=== PATIENT | female | born 1995 | race Two or more races ===

== ENCOUNTER 2018-01-19 17:59 | Inpatient (IN) | payer OTHER ==
[2018-01-19] MEDS: NS 1,000 ML IV (18:13)
[2018-01-19 18:45] LABS: VENOUS BASE EXCESS -3.5 (-2.0-2.0); VENOUS HCO3 22.2 MEQ/L (23.0-27.0); VENOUS PARTIAL PRESSURE O2 41.3 mmHg (30.0-50.0); VENOUS STANDARD HCO3 21.1 MEQ/L; VENOUS TOTAL CO2 23.4 MEQ/L (24.0-28.0)
[2018-01-19 18:54] LABS: BASO # 0.1 10^3/uL (0.0-0.2); EOS % 0.2 % (0.0-3.0); HEMATOCRIT 35.9 % (36.0-47.0); HEMOGLOBIN 11.8 g/dl (12.0-15.5); IMMATURE GRANULOCYTE % 0.2 % (0-3.0); LYMPH # 3.3 10^3/uL (1.5-6.5); LYMPH % 53.5 % (24.0-44.0); MEAN CORPUSCULAR HEMOGLOBIN 26.9 pg (27.0-33.0); MEAN CORPUSCULAR HGB CONC 32.9 g/dl (32.0-36.5); MEAN CORPUSCULAR VOLUME 81.8 fl (80.0-96.0); MONO # 0.5 10^3/uL (0.0-0.8); NEUTROPHILS # 2.3 10^3/uL (1.8-7.7); NEUTROPHILS % 37.1 % (36.0-66.0); PLATELET COUNT, AUTOMATED 399 10^3/uL (150-450); RED BLOOD COUNT 4.39 10^6/uL (4.00-5.40); RED CELL DISTRIBUTION WIDTH 13.1 % (11.5-14.5); WHITE BLOOD COUNT 6.1 10^3/uL (4.0-10.0)
[2018-01-19 19:08] LABS: CONTROL LINE HCG INT CTR LINE PRESENT; HCG, SERUM QUALITATIVE NEGATIVE (NEGATIVE)
[2018-01-19 19:13] LABS: AMPHETAMINES LEVEL URINE NEGATIVE (NEGATIVE); BARBITURATES URINE NEGATIVE (NEGATIVE); BENZODIAZEPINES URINE NEGATIVE (NEGATIVE); CANNABINOIDS URINE NEGATIVE (NEGATIVE); COCAINE METABOLITE URINE NEGATIVE (NEGATIVE); METHADONE URINE NEGATIVE (NEGATIVE); OPIATES URINE NEGATIVE (NEGATIVE); PHENCYCLIDINE URINE NEGATIVE (NEGATIVE)
[2018-01-19 19:28] LABS: ALBUMIN 3.7 GM/DL (3.2-5.2); ALBUMIN/GLOBULIN RATIO 0.84 (1.00-1.93); ALKALINE PHOSPHATASE 69 U/L (45-117); ALT/SGPT 22 U/L (12-78); ANION GAP 11 MEQ/L (8-16); AST/SGOT 16 U/L (7-37); BILIRUBIN,DIRECT 0.2 MG/DL (0.0-0.2); BILIRUBIN,TOTAL 0.6 MG/DL (0.2-1.0); BLOOD UREA NITROGEN 9 MG/DL (7-18); CARBON DIOXIDE LEVEL 25 MEQ/L (21-32); CHLORIDE LEVEL 106 MEQ/L (98-107); CPK CREATINE PHOSPHOKINASE 148 U/L (26-192); CREATININE FOR GFR 0.86 MG/DL (0.55-1.30); ETHYL ALCOHOL (ETHANOL) 0.094 % (0.000-0.010); GLOMERULAR FILTRATION RATE > 60.0 (>60); GLUCOSE, FASTING 93 MG/DL (70-100); POTASSIUM SERUM 3.9 MEQ/L (3.5-5.1); SALICYLATE LEVEL < 1.7 MG/DL (5.0-30.0); SODIUM LEVEL 142 MEQ/L (136-145); TOTAL PROTEIN 8.1 GM/DL (6.4-8.2)
[2018-01-19 19:33] LABS: ACETAMINOPHEN LEVEL < 2.0 UG/ML (10.0-30.0)
[2018-01-19] MEDS ORDERED: traZODone 50 MG TAB PO (20:15)
[2018-01-19] MEDS ORDERED: MOM 30ML SUSPENSION UDC PO (20:15)
[2018-01-19] MEDS ORDERED: MAALOX 30 ML SUSP *UDC PO (20:15)
[2018-01-20] MEDS ORDERED: ALBUTEROL 90 MCG/ACT 8GM HFA INHALER INH (09:15)
[2018-01-20] MEDS: MONTELUKAST 10 MG TAB PO (09:48)
[2018-01-20] MEDS: OMEPRAZOLE 20 MG CAP PO (09:48)
[2018-01-20] MEDS: TIOTROPIUM INHALER/CAPSULE (SPIRIVA) INH (09:48)
[2018-01-20] MEDS: FERROUS SULFATE 325MG TAB PO (09:48)
[2018-01-20] MEDS: ACETAMINOPHEN TAB 650MG DOSE (2X325MG) PO (18:21)
[2018-01-21] MEDS: FERROUS SULFATE 325MG TAB PO (08:12)
[2018-01-21] MEDS: TIOTROPIUM INHALER/CAPSULE (SPIRIVA) INH (08:12)
[2018-01-21] MEDS: MONTELUKAST 10 MG TAB PO (08:12)
[2018-01-21] MEDS: OMEPRAZOLE 20 MG CAP PO (08:12)
== END 2018-01-21 11:00 | disposition home or self-care (01) | DRG 881 ==
LOC: M ED 17:59 → M ED INP 20:14 → M PSY 22:27
DX: F43.21 Adjustment disorder with depressed mood (principal); Z68.41 Body mass index [BMI] 40.0-44.9, adult; F10.10 Alcohol abuse, uncomplicated; T47.1X4A Poisoning by other antacids and anti-gastric-secretion drugs, undetermined, initial encounter; T39.395A Adverse effect of other nonsteroidal anti-inflammatory drugs [NSAID], initial encounter; J45.909 Unspecified asthma, uncomplicated; K21.9 Gastro-esophageal reflux disease without esophagitis; D50.9 Iron deficiency anemia, unspecified; E66.9 Obesity, unspecified; F41.9 Anxiety disorder, unspecified; Z91.013 Allergy to seafood; Z79.899 Other long term (current) drug therapy

== ENCOUNTER → 2018-02-05 | Outpatient (REF) ==
[2018-02-07 15:51] LABS: QUANTIFERON GOLD TB Negative (Negative); TB Test (QFT) Antigen 0.07 IU/mL (.); TB Test (QFT) Antigen Minus Ni 0.03 IU/mL (.); TB Test (QFT) Mitogen 8.72 IU/mL (.); TB Test (QFT) Nil 0.04 IU/mL (.)
== END ==
LOC: M LAB 13:02
DX: Z00.00 Encounter for general adult medical examination without abnormal findings (principal)

== ENCOUNTER → 2018-02-08 | Outpatient (REF) | payer OTHER ==
[2018-02-08 18:26] LABS: CHLAMYDIA DNA AMPLIFICATION NEGATIVE (NEGATIVE); GC DNA AMPLIFICATION NEGATIVE (NEGATIVE)
[2018-02-10 19:35] LABS: HIV 1&2 SCREEN CENTAUR NEGATIVE (NEGATIVE)
== END ==
LOC: M SFHCPLAZ 14:40
DX: Z09 Encounter for follow-up examination after completed treatment for conditions other than malignant neoplasm (principal); Z11.3 Encounter for screening for infections with a predominantly sexual mode of transmission (principal)
CPT/HCPCS: 36415

== ENCOUNTER 2018-07-06 13:26 | Emergency (ER) | payer OTHER ==
[~2018-07-06] VITALS: Ht 160 cm; Wt 115.0 kg
[~2018-07-06 13:26] MED LIST: FERR1TAB8 PO; MONT10TA2 PO; OMEP40CA2 PO; PATIENT COMMENT; PROAAER10 INH; SING10TA32 PO; SPIR12.9 INH
[2018-07-06] MEDS ORDERED: IBUPROFEN 800 MG TAB PO ONE (16:15)
--- NOTE | 2018-07-06 16:44 | REP ---
Chest two views HISTORY: Chest pain Comparison: None The lungs are clear. The heart is normal in size. The pulmonary vasculature is normal in appearance. The bony structure is intact. IMPRESSION: No acute disease. Electronically Signed by Carl Obregon MD 07/06/2018 04:35 P
[2018-07-06 17:10] VITALS: BP 127/65
[2018-07-06] MEDS ORDERED: IBUP80TA PO (17:33)
--- NOTE | 2018-07-07 09:00 | ECGEPIP ---
Stationary ECG Study [facility] - ED Test Date: 2018-07-06 Pat Name: TISH SOUZA Department: Room: - Gender: F Check Cashier: ct : 1995 Requested By: DUNCAN CRUZ Order Number: [id number] Reading MD: Luis Castro Measurements Intervals [place] Rate: 62 P: 57 [place]: 163 QRS: 53 QRSD: 90 T: 27 QT: 417 QTc: 424 Interpretive Statements SINUS RHYTHM SIMILAR TO 01/19/18 Electronically Signed On 07-07-2018 8:59:45 EST by Luis Castro
== END 2018-07-06 17:39 | disposition home or self-care (01) ==
LOC: M ED 13:26
DX: R07.89 Other chest pain (principal)

== ENCOUNTER → 2018-11-04 | Outpatient (CLI) | payer OTHER ==
[~2018-11-04] MED LIST changes: +IBUP80TA PO
--- NOTE | 2018-11-04 16:00 | REP ---
Chest two views HISTORY: Chest pain Comparison: 07/06/2018 The lungs are clear. The heart is normal in size. The pulmonary vasculature is normal in appearance. The bony structure is intact. IMPRESSION: No acute disease. Electronically Signed by Carl Obregon MD 11/04/2018 03:52 P
[2018-11-04 19:16] LABS: BASO # 0.1 10^3/uL (0.0-0.2); BASO % 0.8 % (0.0-1.0); EOS % 0.7 % (0.0-3.0); HEMATOCRIT 36.9 % (36.0-47.0); HEMOGLOBIN 11.7 g/dl (12.0-15.5); LYMPH # 2.7 10^3/uL (1.5-6.5); LYMPH % 45.7 % (24.0-44.0); MEAN CORPUSCULAR HEMOGLOBIN 26.7 pg (27.0-33.0); MEAN CORPUSCULAR HGB CONC 31.7 g/dl (32.0-36.5); MEAN CORPUSCULAR VOLUME 84.2 fl (80.0-96.0); MONO # 0.5 10^3/uL (0.0-0.8); NEUTROPHILS # 2.6 10^3/uL (1.8-7.7); NEUTROPHILS % 43.6 % (36.0-66.0); PLATELET COUNT, AUTOMATED 418 10^3/uL (150-450); RED BLOOD COUNT 4.38 10^6/uL (4.00-5.40); WHITE BLOOD COUNT 5.9 10^3/uL (4.0-10.0)
[2018-11-04 19:45] LABS: ALBUMIN 4.3 GM/DL (3.2-5.2); ALT/SGPT 32 U/L (12-78); BILIRUBIN,TOTAL 0.9 MG/DL (0.2-1.0); BLOOD UREA NITROGEN 12 MG/DL (7-18); CALCIUM LEVEL 9.5 MG/DL (8.5-10.1); CARBON DIOXIDE LEVEL 26 MEQ/L (21-32); CHLORIDE LEVEL 104 MEQ/L (98-107); CREATININE FOR GFR 0.76 MG/DL (0.55-1.30); FREE T4 1.04 NG/DL (0.76-1.46); GLOMERULAR FILTRATION RATE > 60.0 (>60); GLUCOSE, FASTING 68 MG/DL (70-100); POTASSIUM SERUM 4.6 MEQ/L (3.5-5.1); SODIUM LEVEL 139 MEQ/L (136-145); TOTAL PROTEIN 8.4 GM/DL (6.4-8.2)
== END ==
LOC: M WUC 15:26
PROVIDERS: ATTEND Physician Assistant
DX: R07.9 Chest pain, unspecified (principal)

== ENCOUNTER → 2019-02-08 | Outpatient (CLI) | payer OTHER ==
[~2019-02-08] MED LIST changes: +ASPI1CHW2 PO
--- NOTE | 2019-02-08 16:33 | REP ---
Emergency first trimester obstetric sonography: History: Declining beta sub unit HCG level. Early miscarriage versus ectopic. No comparison imaging. Findings: Transvaginal scanning was performed. Uterine dimensions are normal 8.8 x 5.1 x 6.3 cm. Endometrial echo contains some fluid but no observable decidual reaction. No embryonic pole is visible. Mean sac size criteria of the fluid in the endometrium, 11.5 mm, would correspond to a 6-afkg-1-day gestational age estimate. The patient is 15 weeks 5 days by dates. There is only a trace of fluid the cul-de-sac. No adnexal mass lesion is seen. The left ovary measures 4.9 x 2.7 x 4.2 cm, calculated volume 29 ml. There is a 2.3 x 1.5 x 2.3 cm cystic area in the left ovary consistent with corpus luteum. Right ovary is 5.0 x 2.9 x 3.4 cm calculated volume 26 ml. Impression: There is a small quantity of endometrial fluid but no decidual reaction. No definitive intrauterine . No adnexal mass or significant free fluid seen. Findings most consistent with spontaneous AB. Clinical and possibly sonographic followup suggested. Electronically Signed by Wili Boone MD 02/08/2019 04:58 P
== END ==
LOC: M RAD 14:01
PROVIDERS: ATTEND Obstetrics & Gynecology
DX: O02.81 Inappropriate change in quantitative human chorionic gonadotropin (hCG) in early pregnancy (principal); Z3A.00 Weeks of gestation of pregnancy not specified

== ENCOUNTER 2019-02-15 10:33 | Day surgery (SDC) | payer OTHER ==
[~2019-02-15] VITALS: Ht 160 cm; Wt 108.9 kg
[~2019-02-15 10:33] MED LIST changes: +DOXYCYCLINE HYCLATE 100 MG in D5W MINI-BAG PLUS 100 ML IV ONE; +LIDOCAINE 1% MDV 20ML VIAL SQ PRN; +LIDOCAINE 2% INJ 100 MG/5 ML SDV (FOR ANES.) As Ordered ONE; +LR 1,000 ML IV ONE; +MIDAZOLAM INJ 2 MG/2 ML VIAL (J2250) As Ordered ONE; +ONDANSETRON 4MG/2ML VIAL (J2405) As Ordered ONE; +PROPOFOL 200 MG/20 ML VIAL As Ordered ONE; +dexameTHASONE 4 MG/ML 1ML VIAL (J1100) As Ordered ONE; +fentaNYL 100 MCG/2 ML INJECTION (J3010) As Ordered ONE
[2019-02-15 10:58] LABS: HEMATOCRIT 35.1 % (36.0-47.0); HEMOGLOBIN 11.3 g/dl (12.0-15.5)
[2019-02-15] MEDS ORDERED: LIDOCAINE 1% SDV INJ 30 ML VIAL As Ordered ONE (11:51)
[2019-02-15] MEDS ORDERED: KETOROLAC 60 MG/2 ML VIAL (J1885) As Ordered ONE (12:39)
[2019-02-15] MEDS ORDERED: SILVER NITRATE APPLICATOR As Ordered ONE (12:51)
[2019-02-15] MEDS ORDERED: METOCLOPRAMIDE INJ 10MG/2ML VIAL (J2765) As Ordered ONE (13:07)
[2019-02-15] MEDS ORDERED: ONDANSETRON 4MG/2ML VIAL (J2405) As Ordered ONE (13:07)
[2019-02-15] MEDS ORDERED: LR 1,000 ML IV SCH (13:15)
[2019-02-15] MEDS ORDERED: ONDANSETRON 4MG/2ML VIAL (J2405) IV PRN (13:15)
[2019-02-15] MEDS ORDERED: PERCOCET 5MG/325MG TAB PO PRN (13:15)
[2019-02-15] MEDS ORDERED: fentaNYL 100 MCG/2 ML INJECTION (J3010) IV PRN (13:15)
[2019-02-15] MEDS: HYDROMORPHONE HCL 0.5 MG/ 0.5 ML SYRINGE (J1170 PER 1) IV PRN ×2 (13:35→13:46)
[2019-02-15 17:50] VITALS: BP 115/58
--- NOTE | 2019-02-16 10:53 | RO ---
DATE OF PROCEDURE: 02/15/2019 PREOPERATIVE DIAGNOSIS: Missed or incomplete . POSTOPERATIVE DIAGNOSIS: Missed or incomplete . PROCEDURE PERFORMED: Suction dilatation and curettage. SURGEON: Dr. Taty Perdomo UNDERWRITER: ANESTHESIA: ESTIMATED BLOOD LOSS: 100 mL. FLUIDS ADMINISTERED: 800 mL of Lactated Ringer's solution. URINE OUTPUT: 50 mL of urine. MEDICATIONS: The patient received 200 mg IV doxycycline prior to the procedure. MATERIALS TO LAB: Yes, products of conception. COMPLICATIONS: None noted. INDICATION: The patient is a 23-year-old with LMP September2018, who had been seen previously with notably a missed . She had a decreasing quantitative beta HCG and multiple US that was significant for an irregular gestational sac without evidence of ectopic . Discussed the option of medical versus surgical management and the patient elected to have surgical management. We discussed the risks, benefits, indications and alternatives, to include, but not limited to infection, damage to other organs, specifically perforation of the uterus, need for blood transfusion and the risk of blood transfusion to include anaphylaxis or transmission of blood borne products. We discussed the risk of future pregnancies and risk of anesthesia. The patient voiced understanding and signed informed consent. OPERATIVE FINDINGS: Exam under anesthesia revealed an anteverted uterus. Transabdominal ultrasound was used to visualize the uterus before the procedure demonstrating irregular gestational sac without evidence of a yolk sac or pole and no obvious evidence of fluid in the abdomen at this time. Normal appearing external female genitalia. A 10 mm suction curette was used for the procedure. The entire procedure was hemostatic. DESCRIPTION OF THE PROCEDURE: The patient was taken to the operating room where anesthesia was administered. The patient was placed in lithotomy position. Transvaginal ultrasound was performed with the above findings. A bimanual exam was performed. The vagina and perineum were prepped and draped in a sterile fashion. A straight catheter was performed prior to the procedure. Speculum was placed into the vagina and the cervix was identified. The anterior aspect of the cervix was stabilized with single tooth tenaculum. The cervix was then serially dilated with Hanks and Hegar dilators. The 10 mm suction curette was gently advanced to the uterine fundus. The suction device was activate and curettage rotated to clear the uterus of products of the conception. This procedure was done several times. A sharp curette was performed as well, several times and was notable for good uterine cry in all 4 quadrants. The suction curette was again reintroduced to clear the uterus of all remaining contents. There was minimal bleeding at the end of the procedure and the tenaculum was removed. Silver nitrate was placed over the tenaculum sites with good hemostasis noted. The patient tolerated the procedure well. All instruments and lap counts were correct times two. There was no complications noted at this time. The patient was taken to the recovery room in stable condition. JOSE
== END 2019-02-15 17:55 | disposition home or self-care (01) ==
LOC: M SDC 10:33
PROVIDERS: ATTEND Obstetrics & Gynecology
DX: O02.1 Missed abortion (principal); Z79.82 Long term (current) use of aspirin; Z79.51 Long term (current) use of inhaled steroids; J45.909 Unspecified asthma, uncomplicated; Z91.013 Allergy to seafood
CPT/HCPCS: 36415; 59820; 85014; 85018; 86850; 86900; 86901; 88305; J1100; J1170; J1885; J2250; J2405; J2765; J3010

== ENCOUNTER 2020-07-25 17:06 | Emergency (ER) | payer OTHER ==
[~2020-07-25] VITALS: Ht 160 cm; Wt 89.0 kg
[~2020-07-25 17:06] MED LIST changes: -DOXYCYCLINE HYCLATE 100 MG in D5W MINI-BAG PLUS 100 ML IV ONE; -LIDOCAINE 1% MDV 20ML VIAL SQ PRN; -LIDOCAINE 2% INJ 100 MG/5 ML SDV (FOR ANES.) As Ordered ONE; -LR 1,000 ML IV ONE; -MIDAZOLAM INJ 2 MG/2 ML VIAL (J2250) As Ordered ONE; +MONT10TA10 PO; -MONT10TA2 PO; -OMEP40CA2 PO; +OMEP40CA97 PO; -ONDANSETRON 4MG/2ML VIAL (J2405) As Ordered ONE; -PROPOFOL 200 MG/20 ML VIAL As Ordered ONE; -dexameTHASONE 4 MG/ML 1ML VIAL (J1100) As Ordered ONE; -fentaNYL 100 MCG/2 ML INJECTION (J3010) As Ordered ONE
--- OUTSIDE RECORDS SUMMARY | 2020-07-25 17:13 | CCD ---
Author Author [facility] Organization [facility] Address Unknown Phone Unavailable Support Name Relationship Address Phone RACHELRUDOLPH RayJEROME Next Of Kin [address] [place] [address] UE Next Of Kin Unknown Unavailable RACHELGURPREET RayJEROME Next Of Kin [address] [facility] [address] RachelHarinder raywilliams ECON [address] [place] [address] Unavailable Re-disclosure Warning The records that you are about to access may contain information from federally-assisted alcohol or drug abuse programs. If such information is present, then the following federally mandated warning applies: This information has been disclosed to you from records protected by federal confidentiality rules (42 CFR part 2). The federal rules prohibit you from making any further disclosure of this information unless further disclosure is expressly permitted by the written consent of the person to whom it pertains or as otherwise permitted by 42 CFR part 2. A general authorization for the release of medical or other information is NOT sufficient for this purpose. The Federal rules restrict any use of the information to criminally investigate or prosecute any alcohol or drug abuse patient.The records that you are about to access may contain highly sensitive health information, the redisclosure of which is protected by Article 27-F of the [facility] Public Health law. If you continue you may have access to information: Regarding HIV / AIDS; Provided by facilities licensed or operated by the [facility] Office of Mental Health; or Provided by the [facility] Office for People With Developmental Disabilities. If such information is present, then the following [facility] mandated warning applies: This information has been disclosed to you from confidential records which are protected by state law. State law prohibits you from making any further disclosure of this information without the specific written consent of the person to whom it pertains, or as otherwise permitted by law. Any unauthorized further disclosure in violation of state law may result in a fine or detention sentence or both. A general authorization for the release of medical or other information is NOT sufficient authorization for further disc losure. Family History Family Member Name Family Member Gender Family Member Status Date o f Status Description Data Source(s) Unknown Unknown Problem [facility] ([facility]) Insurance Providers Payer name Policy type / Coverage type Policy ID Covered green party ID Covered green party's relationship to hazel Policy Hazel Plan Information [facility] [employer] [id number] [facility] [id number] [employer]agen [facility] [employer] [id number] [facility] [id number] [employer] [id number] Family Dependent [id number] ANSI-Not a Secondary Insurance [id number] ANSI-Not a Secondary Insurance [id number] Results ID Date Data Source [id number] 05/07/2020 12:04:00 PM EST [facility] Name Value Range Interpretation Code Description Data Frannie rce(s) Supporting Document(s) SARS coronavirus 2 [facility] This lab was ordered by [employer] and rep orted by [facility]. ID Date Data Source [id number] 01/26/2020 09:04:00 AM EDT [facility] Received: 01/25/2020 at 11:05:00 QPT : [facility], [address], [address] [place] [address], [phone], Paul Bowers MD Name Value Range Interpretation Code Description Data Frannie rce(s) Supporting Document(s) ID Date Data Source [id number] 01/26/2020 09:04:00 AM EDT [facility] Received: 01/25/2020 at 11:05:00 QPT : [facility], [address], [address] [place] [address], [phone], Paul Bowers MD Name Value Range Interpretation Code Description Data Frannie rce(s) Supporting Document(s) Helicobacter pylori [Presence] in Stomach by urea breath test NOT DETECTED Normal (applies to non-numeric results) [facility] Antimicrobials, proton pump inhibitors, and bismuthpreparations are known to suppress H. pylori, andingestion of these prior to H. pylori diagnostic testingmay lead to false negative results. If clinicallyindicated, the test may be repeated on a new specimenobtained two weeks after discontinuing treatment.However, a positive result is still clinically valid. Procedure
[2020-07-25] MEDS ORDERED: ACET-683 PO (17:21)
--- OUTSIDE RECORDS SUMMARY | 2020-07-25 19:27 | CCD ---
Author Author [facility] Organization [facility] Address Unknown Phone Unavailable Support Name Relationship Address Phone VICTOR MANUEL RAMOS Next Of Kin [address] [place] [address] UE Next Of Kin Unknown Unavailable NEVA RAMOS Next Of Kin [address] [place] [address] Victor Manuel Ramos ECON [address] [place] [address] Unavailable Re-disclosure Warning The records that you [...] is protected by Article 27-F of the [facility] Public Health law. If you continue you may have access to information: Regarding HIV / AIDS; Provided by facilities licensed or operated by the [facility] Office of Mental Health; or Provided by the [facility] Office for People With Developmental Disabilities. If such information is present, then the following [facility] mandated warning applies: This information has been [...] law may result in a fine or nursing home sentence or both. A general authorization for [...] relationship to hazel Policy Hazel Plan Information [facility] [employer] [id number] [facility] [id number] Health Plan One [facility] [employer] [id number] [facility] [id number] [employer] [id number] Family Dependent [id number] ANSI-Not a Secondary Insurance [id number] ANSI-Not a Secondary Insurance [id number] Results ID Date Data Source [id number] 05/07/2020 12:04:00 PM EST [facility] Name Value Range Interpretation Code Description Data Frannie rce(s) Supporting Document(s) [facility] coronavirus 2 [facility] This lab was ordered by [employer] and rep orted by [facility]. ID Date Data Source [id number] 01/26/2020 09:04:00 AM EDT [facility] Received: 01/25/2020 at 11:05:00 QPT : [facility] [address], [address] [place] [address], [phone], Paul Bowers MD Name Value Range Interpretation Code Description Data Frannie rce(s) Supporting Document(s) ID Date Data Source [id number] 01/26/2020 09:04:00 AM EDT [facility] Received: 01/25/2020 at 11:05:00 QPT : [facility], [address], [address] [place] [address], [phone], Paul Bowers MD Name Value Range Interpretation [...]
[2020-07-25 19:47] LABS: BASO # 0.1 10^3/uL (0.0-0.2); BASO % 0.9 % (0.0-1.0); EOS # 0.1 10^3/uL (0.0-0.5); EOS % 1.3 % (0.0-3.0); HEMATOCRIT 38.8 % (36.0-47.0); HEMOGLOBIN 12.3 g/dl (12.0-15.5); LYMPH # 2.8 10^3/uL (1.5-5.0); LYMPH % 52.8 % (24.0-44.0); MEAN CORPUSCULAR HEMOGLOBIN 26.9 pg (27.0-33.0); MEAN CORPUSCULAR HGB CONC 31.7 g/dl (32.0-36.5); MEAN CORPUSCULAR VOLUME 84.9 fl (80.0-96.0); MONO # 0.3 10^3/uL (0.0-0.8); MONO % 6.3 % (2.0-8.0); NEUTROPHILS % 38.5 % (36.0-66.0); PLATELET COUNT, AUTOMATED 329 10^3/uL (150-450); RED BLOOD COUNT 4.57 10^6/uL (4.00-5.40); WHITE BLOOD COUNT 5.3 10^3/uL (4.0-10.0)
[2020-07-25 20:25] LABS: ALT/SGPT 16 U/L (12-78); BILIRUBIN,DIRECT 0.2 MG/DL (0.0-0.2); BILIRUBIN,TOTAL 0.8 MG/DL (0.2-1.0); BLOOD UREA NITROGEN 15 MG/DL (7-18); CARBON DIOXIDE LEVEL 24 MEQ/L (21-32); CHLORIDE LEVEL 106 MEQ/L (98-107); CK-MB VALUE MASS < 1.0 NG/ML (<3.6); CPK CREATINE PHOSPHOKINASE 120 U/L (26-192); FREE T4 0.97 NG/DL (0.76-1.46); GLOMERULAR FILTRATION RATE > 60.0 (>60); GLUCOSE, FASTING 78 MG/DL (70-100); LIPASE 158 U/L (73-393); MAGNESIUM LEVEL 2.4 MG/DL (1.8-2.4); MB/CK RELATIVE INDEX 0.83 (< OR =4); SODIUM LEVEL 138 MEQ/L (136-145); TOTAL PROTEIN 8.1 GM/DL (6.4-8.2); TROPONIN I < 0.02 NG/ML (< 0.10)
[2020-07-25 20:28] LABS: VITAMIN B12 LEVEL 478 PG/ML (247-911)
[2020-07-25 20:34] LABS: HCG, SERUM QUALITATIVE NEGATIVE (NEGATIVE)
[2020-07-25] MEDS ORDERED: NS 1,000 ML IV ONE (22:25)
--- NOTE | 2020-07-25 22:32 | REPVR ---
PROCEDURE INFORMATION: Exam: CT Head Without Contrast Exam date and time: 07/25/2020 8:56 PM Age: 24 years old Clinical indication: Syncope and collapse; Additional info: Syncope with poss loc TECHNIQUE: Imaging protocol: Computed tomography of the head without contrast. Radiation optimization: All CT scans at this facility use at least one of these dose optimization techniques: automated exposure control; mA and/or kV adjustment per patient size (includes targeted exams where dose is matched to clinical indication); or iterative reconstruction. COMPARISON: No relevant prior studies available. FINDINGS: Brain: Normal. No hemorrhage. Unremarkable white matter. No mass effect. Cerebral ventricles: No ventriculomegaly. Bones/joints: Unremarkable. No acute fracture. Paranasal sinuses: Visualized sinuses are unremarkable. No fluid levels. Mastoid air cells: Visualized mastoid air cells are well aerated. Soft tissues: Unremarkable. IMPRESSION: No acute intracranial abnormality. Electronically signed by: Isaias Burrell On 07/25/2020 22:32:04 PM
[2020-07-25 23:08] VITALS: BP 114/57
--- NOTE | 2020-07-26 09:36 | ECGEPIP ---
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
== END 2020-07-25 23:11 | disposition home or self-care (01) ==
LOC: M ED 17:06
DX: R55 Syncope and collapse (principal); Z91.018 Allergy to other foods

== ENCOUNTER 2020-08-30 22:15 | Emergency (ER) | payer OTHER ==
[~2020-08-30] VITALS: Ht 160 cm; Wt 85.6 kg
[~2020-08-30 22:15] MED LIST changes: +ACET-683 PO
[2020-08-30] MEDS ORDERED: VITAD400CA FT (22:27)
[2020-08-31] MEDS ORDERED: ACETAMINOPHEN 500 MG TAB PO ONE (00:05)
[2020-08-31 00:29] LABS: BASO # 0.1 10^3/uL (0.0-0.2); BASO % 0.7 % (0.0-1.0); EOS # 0.1 10^3/uL (0.0-0.5); EOS % 1.2 % (0.0-3.0); HEMATOCRIT 39.6 % (36.0-47.0); HEMOGLOBIN 12.7 g/dl (12.0-15.5); LYMPH # 3.8 10^3/uL (1.5-5.0); MEAN CORPUSCULAR HEMOGLOBIN 27.6 pg (27.0-33.0); MEAN CORPUSCULAR HGB CONC 32.1 g/dl (32.0-36.5); MEAN CORPUSCULAR VOLUME 86.1 fl (80.0-96.0); MONO # 0.4 10^3/uL (0.0-0.8); MONO % 4.7 % (2.0-8.0); NEUTROPHILS # 3.4 10^3/uL (1.5-8.5); NEUTROPHILS % 44.3 % (36.0-66.0); PLATELET COUNT, AUTOMATED 356 10^3/uL (150-450); WHITE BLOOD COUNT 7.7 10^3/uL (4.0-10.0)
[2020-08-31 00:36] LABS: APPEARANCE, URINE CLEAR (CLEAR); BACTERIA, URINE AUTO NEGATIVE (NEGATIVE); BILIRUBIN, URINE AUTO NEGATIVE (NEGATIVE); BLOOD, URINE BLOOD NEGATIVE (NEGATIVE); COLOR, URINE YELLOW (YELLOW); GLUCOSE, URINE (UA) AUTO NEGATIVE (NEGATIVE); KETONE, URINE AUTO NEGATIVE (NEGATIVE); LEUKOCYTE ESTERASE, URINE AUTO NEGATIVE (NEGATIVE); MUCUS, URINE SMALL (NEGATIVE); NITRITE, URINE AUTO NEGATIVE (NEGATIVE); PROTEIN, URINE AUTO NEGATIVE (NEGATIVE); RBC, URINE AUTO 2 /HPF (0-3); SPECIFIC GRAVITY URINE AUTO 1.029 (1.002-1.035); SQUAMOUS EPITHELIAL CELL UR AU 1 /HPF (0-6); WBC, URINE AUTO 3 /HPF (0-3)
[2020-08-31 02:13] VITALS: BP 108/69
--- NOTE | 2020-08-31 02:22 | REPVR ---
PROCEDURE INFORMATION: Exam: US Duplex Artery and Vein of the Abdominal and/or Reproductive Organs. Complete Ovaries Exam date and time: 08/31/2020 1:00 AM Age: 25 years old Clinical indication: complicated by abdominal or pelvic pain; Other: Lt pelvic; Gestational age or lmp: 5 weeks 0 days; ; Additional info: Pelvic pain, 5 wks preg TECHNIQUE: Imaging protocol: Real-time duplex ultrasound scan of the arterial and venous flow with color Doppler flow and spectral waveform analysis with image documentation. Complete duplex exam focused on the ovaries. Duplex exam was added to evaluate for torsion and other vascular conditions. COMPARISON: No relevant prior studies available. FINDINGS: Right adnexa: Normal duplex of the ovary. Normal Doppler waveforms and color flow. Arterial and venous flow are normal. No evidence of ovarian torsion. Left adnexa: Normal duplex of the ovary. Normal Doppler waveforms and color flow. Arterial and venous flow are normal. No evidence of ovarian torsion. IMPRESSION: Normal ovarian arterial and venous vascular flow. No evidence ovarian torsion. PROCEDURE INFORMATION: Exam: US First Trimester, Transabdominal and US , Transvaginal Exam date and time: 08/31/2020 1:00 AM Age: 25 years old Clinical indication: complicated by abdominal or pelvic pain; Other: Lt pelvic; Gestational age or lmp: 5 weeks 0 days; ; Additional info: Pelvic pain, 5 wks preg TECHNIQUE: Imaging protocol: Real-time transabdominal obstetrical ultrasound of the maternal pelvis and a first trimester , less than 14 weeks 0 days, with image documentation. Transvaginal imaging was used for better evaluation of the fetus, adnexa, and/or cervix. COMPARISON: No relevant prior studies available. FINDINGS: Gestation: No intra or extra uterine gestation. MATERNAL: Uterus: Uterus measures 7.7 x 4.4 x 5.2 cm. Endometrial stripe is 1.4 cm. Cervix: Nabothian cysts. Right adnexa: Right ovary measures 3 x 4 x 2 cm. Left adnexa: Left ovary measures 4.2 x 2.5 x 3.8 cm. Appearance of a 2.3 x 2.8 x 1.7 cm left ovarian corpus luteal cyst. Intraperitoneal space: Free fluid in the pelvis. IMPRESSION: No definite intra or extra uterine gestation. Recommend continued beta HCG follow-up and repeat ultrasound in 1-2 weeks. Appearance of a 2.3 x 2.8 x 1.7 cm left ovarian corpus luteal cyst. Free fluid in the pelvis. Electronically signed by: Pako Welsh On 08/31/2020 02:22:05 AM
== END 2020-08-31 02:21 | disposition home or self-care (01) ==
LOC: M ED 22:15
DX: O99.891 Other specified diseases and conditions complicating pregnancy (principal); R10.2 Pelvic and perineal pain; Z79.51 Long term (current) use of inhaled steroids; Z98.84 Bariatric surgery status; Z91.013 Allergy to seafood

== ENCOUNTER → 2020-09-02 | Outpatient (CLI) | payer OTHER ==
[~2020-09-02] MED LIST changes: +VITAD400CA FT
== END ==
LOC: M LAB 09:23
PROVIDERS: ATTEND Physician Assistant
DX: O26.899 Other specified pregnancy related conditions, unspecified trimester (principal); Z3A.00 Weeks of gestation of pregnancy not specified; R10.2 Pelvic and perineal pain

== ENCOUNTER 2020-09-08 20:21 | Emergency (ER) | payer OTHER ==
[~2020-09-08] VITALS: Ht 160 cm; Wt 84.1 kg
[2020-09-08] MEDS ORDERED: NS 1,000 ML IV ONE (20:40)
[2020-09-08] MEDS ORDERED: MORPHINE 4 MG/ML 1ML VIAL/SYRINGE (J2270) IV ONE (20:40)
[2020-09-08 21:05] LABS: APPEARANCE, URINE CLEAR (CLEAR); BACTERIA, URINE AUTO NEGATIVE (NEGATIVE); BILIRUBIN, URINE AUTO NEGATIVE (NEGATIVE); BLOOD, URINE BLOOD NEGATIVE (NEGATIVE); COLOR, URINE YELLOW (YELLOW); GLUCOSE, URINE (UA) AUTO NEGATIVE (NEGATIVE); KETONE, URINE AUTO 1+ mg/dL (NEGATIVE); LEUKOCYTE ESTERASE, URINE AUTO NEGATIVE (NEGATIVE); MUCUS, URINE SMALL (NEGATIVE); NITRITE, URINE AUTO NEGATIVE (NEGATIVE); PROTEIN, URINE AUTO NEGATIVE (NEGATIVE); RBC, URINE AUTO 1 /HPF (0-3); SPECIFIC GRAVITY URINE AUTO 1.016 (1.002-1.035); SQUAMOUS EPITHELIAL CELL UR AU 1 /HPF (0-6); WBC, URINE AUTO 2 /HPF (0-3)
[2020-09-08 21:22] LABS: BASO % 0.5 % (0.0-1.0); EOS # 0.1 10^3/uL (0.0-0.5); HEMATOCRIT 35.2 % (36.0-47.0); HEMOGLOBIN 11.4 g/dl (12.0-15.5); LYMPH # 3.5 10^3/uL (1.5-5.0); LYMPH % 45.8 % (24.0-44.0); MEAN CORPUSCULAR HEMOGLOBIN 27.8 pg (27.0-33.0); MEAN CORPUSCULAR HGB CONC 32.4 g/dl (32.0-36.5); MEAN CORPUSCULAR VOLUME 85.9 fl (80.0-96.0); MONO # 0.3 10^3/uL (0.0-0.8); MONO % 4.4 % (2.0-8.0); NEUTROPHILS # 3.7 10^3/uL (1.5-8.5); PLATELET COUNT, AUTOMATED 374 10^3/uL (150-450); WHITE BLOOD COUNT 7.7 10^3/uL (4.0-10.0)
[2020-09-08 22:04] LABS: ALBUMIN 3.7 GM/DL (3.2-5.2); ALT/SGPT 13 U/L (12-78); BILIRUBIN,DIRECT 0.2 MG/DL (0.0-0.2); BILIRUBIN,TOTAL 0.6 MG/DL (0.2-1.0); BLOOD UREA NITROGEN 12 MG/DL (7-18); CARBON DIOXIDE LEVEL 23 MEQ/L (21-32); CHLORIDE LEVEL 109 MEQ/L (98-107); CREATININE FOR GFR 0.75 MG/DL (0.55-1.30); GLOMERULAR FILTRATION RATE > 60.0 (>60); GLUCOSE, FASTING 123 MG/DL (70-100); HCG, SERUM QUANTITATIVE 9516 MIU/ML; LIPASE 131 U/L (73-393); POTASSIUM SERUM 3.7 MEQ/L (3.5-5.1); SODIUM LEVEL 138 MEQ/L (136-145); TOTAL PROTEIN 7.6 GM/DL (6.4-8.2)
[2020-09-08 22:32] LABS: CHLAMYDIA DNA AMPLIFICATION NEGATIVE (NEGATIVE); GC DNA AMPLIFICATION NEGATIVE (NEGATIVE)
--- NOTE | 2020-09-08 23:16 | REPVR ---
PROCEDURE INFORMATION: Exam: US Duplex Artery and Vein of the Abdominal and/or Reproductive Organs. Complete Ovaries Exam date and time: 09/08/2020 9:58 PM Age: 25 years old Clinical indication: complicated by abdominal or pelvic pain; Lower; First trimester; Gestational age or lmp: 6 weeks 1 days; ; Additional info: Abd pain eval for iup TECHNIQUE: Imaging protocol: Real-time duplex ultrasound scan of the arterial and venous flow with color Doppler flow and spectral waveform analysis with image documentation. Complete duplex exam focused on the ovaries. Duplex exam was added to evaluate for torsion and other vascular conditions. COMPARISON: No relevant prior studies available. FINDINGS: Right adnexa: The arterial and venous color Doppler flow and spectral waveforms within the right ovary are within normal limits, without evidence for right ovarian torsion. Left adnexa: The arterial and venous color Doppler flow and spectral waveforms within the left ovary are within normal limits, without evidence for left ovarian torsion. IMPRESSION: No evidence for ovarian torsion. PROCEDURE INFORMATION: Exam: US First Trimester, Transabdominal and US , Transvaginal Exam date and time: 09/08/2020 9:58 PM Age: 25 years old Clinical indication: complicated by abdominal or pelvic pain; Lower; First trimester; Gestational age or lmp: 6 weeks 1 days; ; Additional info: Abd pain eval for iup TECHNIQUE: Imaging protocol: Real-time transabdominal obstetrical ultrasound of the maternal pelvis and a first trimester , less than 14 weeks 0 days, with image documentation. Transvaginal imaging was used for better evaluation of the fetus, adnexa, and/or cervix. COMPARISON: 1ST TRIMESTER US 08/31/2020 12:51:45 AM FINDINGS: Last menstrual period: 07/27/2020 Beta HC,516 mIU/mL on 09/08/2020 and 1,102 mIU/mL on 09/02/2020 Gestation: There is an intrauterine gestational sac that has developed since the prior ultrasound on 08/31/2020. No pole or yolk sac is noted. Embryonic/ heart rate: No cardiac activity is visualized. Placenta: No subchorionic hemorrhage is noted. Amniotic fluid: Amniotic fluid is normal for gestational age. BIOMETRY: Gestational age (AUA): 5 weeks 6 days Gestational age (LMP): 6 weeks 1 day Estimated due date (AUA): 05/05/2021 Estimated due date (LMP): 05/03/2021 Mean sac diameter: 1.09 cm; 5 weeks 6 days MATERNAL: Uterus: The anteverted uterus measures 7.7 cm x 4.4 cm x 7.4 cm. No myometrial mass is noted. Cervix: There is a 5 mm nabothian cyst in the cervix. Right adnexa: The right ovary measures 4 cm x 1.7 cm x 2.9 cm and is normal. No right ovarian cyst or right adnexal mass is noted. Left adnexa: The left ovary measures 4.2 cm x 3 cm x 4.2 cm and contains a 2.7 cm x 2.6 cm x 1.8 cm thick walled cyst, which likely represents a corpus luteal cyst that is stable compared to the prior ultrasound on 08/31/2020. Intraperitoneal space: There is a small amount of free fluid in the pelvis. IMPRESSION: Single intrauterine gestational sac corresponding to a gestational age of 5 weeks 6 days and estimated due date on 05/05/2021. However, no pole is visualized, which may be secondary to the early gestational age or an anembryonic . Follow-up ultrasonography in 1-2 weeks or as clinically indicated and serial beta HCG levels are suggested. Electronically signed by: Bogdan Chaudhary On 09/08/2020 23:16:45 PM
[2020-09-08] MEDS ORDERED: metroNIDAZOLE (FLAGYL) 500MG TABLET PO ONE (23:30)
[2020-09-08] MEDS ORDERED: FLAG500T PO (23:37)
[2020-09-08 23:47] VITALS: BP 111/61
== END 2020-09-08 23:56 | disposition home or self-care (01) ==
LOC: M ED 20:21
DX: O20.0 Threatened abortion (principal); O23.591 Infection of other part of genital tract in pregnancy, first trimester; O99.511 Diseases of the respiratory system complicating pregnancy, first trimester; O99.841 Bariatric surgery status complicating pregnancy, first trimester; Z87.59 Personal history of other complications of pregnancy, childbirth and the puerperium; Z91.013 Allergy to seafood
CPT/HCPCS: 76801; 76817; 80048; 80076; 81001; 83690; 84702; 85025; 86850; 86900; 86901; 87086; 87210; 87491; 87591; 93976; 96361; 96374; 99284; J2270

== ENCOUNTER 2020-09-13 07:58 | Emergency (ER) | payer OTHER ==
[~2020-09-13] VITALS: Ht 160 cm; Wt 86.3 kg
[~2020-09-13 07:58] MED LIST changes: +FLAG500T PO
[2020-09-13 09:08] LABS: HEMATOCRIT 33.8 % (36.0-47.0); HEMOGLOBIN 10.9 g/dl (12.0-15.5); MEAN CORPUSCULAR HEMOGLOBIN 27.9 pg (27.0-33.0); MEAN CORPUSCULAR HGB CONC 32.2 g/dl (32.0-36.5); MEAN CORPUSCULAR VOLUME 86.4 fl (80.0-96.0); PLATELET COUNT, AUTOMATED 346 10^3/uL (150-450); RED BLOOD COUNT 3.91 10^6/uL (4.00-5.40); WHITE BLOOD COUNT 5.2 10^3/uL (4.0-10.0)
--- NOTE | 2020-09-13 09:17 | REP ---
INDICATION: spotting, first trimester with cramping. COMPARISON: 09/08/2020. TECHNIQUE: Real-time sonographic evaluation of gravid uterus performed utilizing transabdominal and endovaginal technique. FINDINGS: Gestational sac is seen within the endometrial canal. A yolk sac is identified as well as a tiny pole which appears to demonstrate a heart rate of 109 beats per minute. The crown-rump length is approximately 2 mm corresponding to an estimated gestational age of 5 weeks 5 days, EDC 05/11/2021. No subchorionic hemorrhage is seen. Complex cystic structure in the left ovary measures 2.7 x 1.5 x 2.6 cm likely a corpus luteum. The ovaries demonstrate no torsion with duplex Doppler evaluation. IMPRESSION: Viable intrauterine gestation with estimated gestational age 5 weeks 5 days, 2 mm pole demonstrates heart rate 109 beats per minute. No subchorionic hemorrhage. Complex cystic structure left ovary 2.7 cm maximally likely representing a corpus luteum. No torsion. <Electronically signed by Kenny Jo > 09/13/20 0914
[2020-09-13 11:23] VITALS: BP 102/55
== END 2020-09-13 11:23 | disposition home or self-care (01) ==
LOC: M ED 07:58
DX: O20.0 Threatened abortion (principal); Z3A.01 Less than 8 weeks gestation of pregnancy; O99.841 Bariatric surgery status complicating pregnancy, first trimester; O34.81 Maternal care for other abnormalities of pelvic organs, first trimester; Z79.899 Other long term (current) drug therapy; Z91.013 Allergy to seafood

== ENCOUNTER → 2020-09-15 | Outpatient (CLI) | payer OTHER | LOC: M LAB 11:41 | DX: O03.9 Complete or unspecified spontaneous abortion without complication (principal) ==

== ENCOUNTER 2020-10-22 19:00 | Emergency (ER) | payer OTHER ==
[~2020-10-22] VITALS: Ht 160 cm; Wt 80.9 kg
[2020-10-22] MEDS ORDERED: FAMO1TAB11 PO (19:10)
[2020-10-22] MEDS ORDERED: PYRI50TA8 PO (19:12)
[2020-10-22] MEDS ORDERED: VITA500C24 PO (19:12)
[2020-10-22] MEDS ORDERED: ONDA-83 PO (19:12)
[2020-10-22] MEDS ORDERED: promethazine PR (19:21)
[2020-10-22] MEDS ORDERED: NS 1,000 ML IV ONE (21:25)
[2020-10-22] MEDS ORDERED: ONDANSETRON 4MG/2ML VIAL IV ONE (21:25)
[2020-10-22] MEDS ORDERED: MULTIVITAMIN -ADULT INJECTION 10 ML, THIAMINE INJection 100 MG, FOLIC ACID 1 MG in NS 1... IV ONE (21:35)
[2020-10-22 21:50] LABS: BASO % 0.7 % (0.0-1.0); EOS # 0.1 10^3/uL (0.0-0.5); EOS % 1.1 % (0.0-3.0); HEMATOCRIT 34.8 % (36.0-47.0); HEMOGLOBIN 11.5 g/dl (12.0-15.5); LYMPH # 2.8 10^3/uL (1.5-5.0); LYMPH % 50.7 % (24.0-44.0); MEAN CORPUSCULAR VOLUME 84.9 fl (80.0-96.0); MONO # 0.3 10^3/uL (0.0-0.8); MONO % 6.2 % (2.0-8.0); NEUTROPHILS # 2.2 10^3/uL (1.5-8.5); NEUTROPHILS % 41.1 % (36.0-66.0); PLATELET COUNT, AUTOMATED 359 10^3/uL (150-450); WHITE BLOOD COUNT 5.5 10^3/uL (4.0-10.0)
[2020-10-22 22:35] LABS: ALBUMIN 3.3 GM/DL (3.2-5.2); ALT/SGPT 14 U/L (12-78); BILIRUBIN,DIRECT < 0.1 MG/DL (0.0-0.2); BILIRUBIN,TOTAL 0.5 MG/DL (0.2-1.0); BLOOD UREA NITROGEN 8 MG/DL (7-18); CALCIUM LEVEL 8.5 MG/DL (8.5-10.1); CARBON DIOXIDE LEVEL 21 MEQ/L (21-32); CHLORIDE LEVEL 105 MEQ/L (98-107); CREATININE FOR GFR 0.49 MG/DL (0.55-1.30); GLOMERULAR FILTRATION RATE > 60.0 (>60); GLUCOSE, FASTING 74 MG/DL (70-100); LIPASE 92 U/L (73-393); POTASSIUM SERUM 4.8 MEQ/L (3.5-5.1); SODIUM LEVEL 135 MEQ/L (136-145); TOTAL PROTEIN 7.2 GM/DL (6.4-8.2)
[2020-10-22] MEDS ORDERED: ONDA4TAB6 PO (23:37)
--- NOTE | 2020-10-22 23:53 | REPVR ---
PROCEDURE INFORMATION: Exam: US First Trimester, Transabdominal Exam date and time: 10/22/2020 10:30 PM Age: 25 years old Clinical indication: Lmp or gestational age (in weeks): 12wks; Other: Vomting; ; Additional info: N/v, no vaginal bleeding, ensure fetus normal TECHNIQUE: Imaging protocol: Real-time transabdominal obstetrical ultrasound of the maternal pelvis and a first trimester , less than 14 weeks 0 days, with image documentation. COMPARISON: 1ST TRIMESTER US 09/08/2020 10:07 PM FINDINGS: Gestation: Single live intrauterine gestation. Embryonic/ heart rate: cardiac activity is detected at 160 bpm. Placenta: Unremarkable. No subchorionic bleed. Amniotic fluid: Amniotic fluid is normal for gestational age. BIOMETRY: Gestational age (AUA): Estimated gestational age is 12 weeks and 0 days. Bruni-Rump length: Bruni-rump length measures 5.4 cm. MATERNAL: Uterus: Unremarkable. Cervix: Unremarkable. Right adnexa: Right ovary measures 4.2 x 1.9 x 2.3 cm. Right ovary is grossly unremarkable. Left adnexa: Left ovary is grossly unremarkable. Intraperitoneal space: No intraperitoneal free fluid. IMPRESSION: Single live intrauterine gestation measuring 12 weeks and 0 days. Electronically signed by: Doin Thurman On 10/22/2020 23:52:50 PM
[2020-10-22 23:55] VITALS: BP 110/59
== END 2020-10-22 23:57 | disposition home or self-care (01) ==
LOC: M ED 19:00
DX: O26.891 Other specified pregnancy related conditions, first trimester (principal); O21.9 Vomiting of pregnancy, unspecified; Z3A.12 12 weeks gestation of pregnancy; O99.611 Diseases of the digestive system complicating pregnancy, first trimester; O99.511 Diseases of the respiratory system complicating pregnancy, first trimester; O99.341 Other mental disorders complicating pregnancy, first trimester; O99.841 Bariatric surgery status complicating pregnancy, first trimester; Z79.899 Other long term (current) drug therapy; Z91.013 Allergy to seafood
CPT/HCPCS: 76801; 80048; 80076; 83690; 85025; 96361; 96374; 99283; J2405

== ENCOUNTER 2020-11-06 19:13 | Emergency (ER) | payer OTHER ==
[~2020-11-06] VITALS: Ht 160 cm; Wt 81.6 kg
[~2020-11-06 19:13] MED LIST changes: +FAMO1TAB11 PO; +ONDA-83 PO; +ONDA4TAB6 PO; +PYRI50TA8 PO; +VITA500C24 PO; +promethazine PR
[2020-11-06 21:30] LABS: BASO % 0.2 % (0.0-1.0); EOS % 0.5 % (0.0-3.0); HEMATOCRIT 34.1 % (36.0-47.0); HEMOGLOBIN 11.2 g/dl (12.0-15.5); LYMPH % 24.8 % (24.0-44.0); MEAN CORPUSCULAR HEMOGLOBIN 27.7 pg (27.0-33.0); MEAN CORPUSCULAR HGB CONC 32.8 g/dl (32.0-36.5); MEAN CORPUSCULAR VOLUME 84.4 fl (80.0-96.0); MONO # 0.4 10^3/uL (0.0-0.8); MONO % 5.4 % (2.0-8.0); NEUTROPHILS # 5.7 10^3/uL (1.5-8.5); NEUTROPHILS % 68.9 % (36.0-66.0); PLATELET COUNT, AUTOMATED 338 10^3/uL (150-450); RED BLOOD COUNT 4.04 10^6/uL (4.00-5.40); WHITE BLOOD COUNT 8.2 10^3/uL (4.0-10.0)
[2020-11-06 22:08] LABS: BLOOD UREA NITROGEN 9 MG/DL (7-18); CALCIUM LEVEL 9.3 MG/DL (8.5-10.1); CARBON DIOXIDE LEVEL 23 MEQ/L (21-32); CHLORIDE LEVEL 107 MEQ/L (98-107); CREATININE FOR GFR 0.58 MG/DL (0.55-1.30); GLOMERULAR FILTRATION RATE > 60.0 (>60); GLUCOSE, FASTING 79 MG/DL (70-100); HCG, SERUM QUANTITATIVE 64669 MIU/ML; POTASSIUM SERUM 4.2 MEQ/L (3.5-5.1); SODIUM LEVEL 137 MEQ/L (136-145)
[2020-11-07] MEDS ORDERED: NS 1,000 ML IV ONE (01:00)
[2020-11-07] MEDS ORDERED: cefTRIAXone SOD 1 GM in D5W MINI-BAG PLUS 50 ML IV ONE (01:00)
[2020-11-07] MEDS ORDERED: ONDANSETRON 4MG/2ML VIAL IV ONE (01:00)
[2020-11-07 02:02] VITALS: BP 105/62
[2020-11-07] MEDS ORDERED: CEPH500C PO (02:28)
[2020-11-07] MEDS ORDERED: REGL10TA6 PO (02:28)
== END 2020-11-07 02:48 | disposition home or self-care (01) ==
LOC: M ED 19:13
DX: O23.12 Infections of bladder in pregnancy, second trimester (principal); O99.282 Endocrine, nutritional and metabolic diseases complicating pregnancy, second trimester; O26.892 Other specified pregnancy related conditions, second trimester; O21.8 Other vomiting complicating pregnancy; Z3A.14 14 weeks gestation of pregnancy; O99.512 Diseases of the respiratory system complicating pregnancy, second trimester; O99.842 Bariatric surgery status complicating pregnancy, second trimester; Z79.899 Other long term (current) drug therapy; Z91.013 Allergy to seafood

== ENCOUNTER 2020-11-07 17:29 | Emergency (ER) | payer OTHER ==
[~2020-11-07] VITALS: Ht 160 cm; Wt 80.9 kg
[~2020-11-07 17:29] MED LIST changes: +CEPH500C PO; +REGL10TA6 PO
[2020-11-07 19:44] LABS: HEMATOCRIT 31.4 % (36.0-47.0); HEMOGLOBIN 10.4 g/dl (12.0-15.5); MEAN CORPUSCULAR HEMOGLOBIN 28.1 pg (27.0-33.0); MEAN CORPUSCULAR HGB CONC 33.1 g/dl (32.0-36.5); MEAN CORPUSCULAR VOLUME 84.9 fl (80.0-96.0); PLATELET COUNT, AUTOMATED 320 10^3/uL (150-450); WHITE BLOOD COUNT 6.6 10^3/uL (4.0-10.0)
--- NOTE | 2020-11-07 19:45 | REP ---
INDICATION: vaginal bleeding 14 weeks. COMPARISON: 10/22/2020. TECHNIQUE: Real-time sonographic evaluation of gravid uterus performed. FINDINGS: There is a single living intrauterine gestation. The estimated gestational age is reportedly 14 weeks 5 days, EDC 05/03/2021. heart rate is 136 beats per minute. Amniotic fluid appears within normal limits. ANGELIC is 11.7. position is breech. Placenta is anterior and grade 0 with no previa or abruption. IMPRESSION: Viable intrauterine gestation. No placenta previa or abruption. <Electronically signed by Kenny Jo > 11/07/201940
[2020-11-07 20:23] VITALS: BP 126/68
== END 2020-11-07 20:25 | disposition home or self-care (01) ==
LOC: M ED 17:29
DX: O26.852 Spotting complicating pregnancy, second trimester (principal); O99.012 Anemia complicating pregnancy, second trimester; O23.12 Infections of bladder in pregnancy, second trimester; O99.282 Endocrine, nutritional and metabolic diseases complicating pregnancy, second trimester; O26.892 Other specified pregnancy related conditions, second trimester; O21.8 Other vomiting complicating pregnancy; O99.512 Diseases of the respiratory system complicating pregnancy, second trimester; O99.842 Bariatric surgery status complicating pregnancy, second trimester; Z3A.14 14 weeks gestation of pregnancy; Z79.899 Other long term (current) drug therapy; Z91.013 Allergy to seafood
CPT/HCPCS: 76815; 85027; 87086; 99283; J0696; J2405